=== PATIENT | male | born 1945 | race Caucasian/White ===

== ENCOUNTER 2018-05-09 09:43 | Emergency (ER) | payer MEDICARE, OTHER ==
[2018-05-09 11:08] LABS: ADD MAN DIFF? NO
[2018-05-09 11:22] LABS: WHITE BLOOD COUNT 3.6 10^3/ul (4.8-10.8)
[2018-05-09 11:22] LABS: BASOPHILS % 0.3 % (0.0-2.0); EOSINOPHILS % 1.1 % (0.0-7.0); HEMOGLOBIN 14.1 g/dl (14.0-18.0); LYMPHOCYTES # 1.2 10^3/ul (0.8-2.9); LYMPHOCYTES % 32.4 % (15.0-51.0); MEAN CORPUSCULAR HEMOGLOBIN 27.8 pg (29.0-33.0); MEAN CORPUSCULAR HGB CONC 32.8 g/dl (32.0-37.0); MEAN CORPUSCULAR VOLUME 84.8 fl (82.0-101.0); MEAN PLATELET VOLUME 9.5 fl (7.4-10.4); MONOCYTE # 0.3 10^3/ul (0.3-0.9); MONOCYTES % 7.3 % (0.0-11.0); NEUTROPHIL # 2.1 10^3/ul (1.6-7.5); NEUTROPHILS % 58.3 % (39.0-77.0); PLATELET COUNT 180 10^3/UL (140-415); RED BLOOD COUNT 5.07 10^6/ul (4.70-6.10); RED CELL DISTRIBUTION WIDTH 12.9 % (11.5-14.5)
[2018-05-09 11:24] LABS: ADD UMIC NO; UR ASCORBIC ACID NEGATIVE (NEGATIVE); UR BILIRUBIN (Dip) NEGATIVE (NEGATIVE); UR BLOOD (Dip) NEGATIVE (NEGATIVE); UR CLARITY CLEAR (CLEAR); UR COLOR STRAW (YELLOW); UR GLUCOSE (Dip) 3+ mg/dL (NEGATIVE); UR KETONES (Dip) NEGATIVE (NEGATIVE); UR LEUKOCYTE ESTERASE (Dip) NEGATIVE Leu/ul (NEGATIVE); UR NITRITE (Dip) NEGATIVE (NEGATIVE); UR SPECIFIC GRAVITY (Dip) 1.029 (1.003-1.030); UR TOTAL PROTEIN (Dip) NEGATIVE (NEGATIVE); UR UROBILINOGEN (Dip) NEGATIVE (NEGATIVE)
[2018-05-09] MEDS: MECLIZINE 12.5 MG TAB PO (11:25)
[2018-05-09 11:43] LABS: INR 0.91; PROTIME 12.3 Sec (11.9-14.9)
[2018-05-09 11:44] LABS: PARTIAL THROMBOPLASTIN TIME 30.3 Sec (23.0-35.0)
[2018-05-09 11:52] LABS: ANION GAP 9 (5-13); BLOOD UREA NITROGEN 12 mg/dl (7-20); CALCIUM 9.1 mg/dl (8.4-10.2); CARBON DIOXIDE 29 mmol/L (21-31); CHLORIDE 103 mmol/L (97-110); CHOL/HDL RATIO 3.3 RATIO; CHOLESTEROL 137 mg/dl (100-200); CREATININE 0.69 mg/dl (0.61-1.24); GLUCOSE 350 mg/dl (70-220); HDL CHOLESTEROL 41 mg/dl (31-75); LDL CHOLESTEROL,CALCULATED 67 mg/dl; POTASSIUM 4.1 mmol/L (3.5-5.1); SODIUM 141 mmol/L (135-144); TRIGLYCERIDES 146 mg/dl (0-149)
[2018-05-09 11:54] LABS: AMPHETAMINE/METHAMPHETAMINE Negative (NEGATIVE); BARBITURATES Negative (NEGATIVE); BENZODIAZEPINES Negative (NEGATIVE); CANNABINOIDS Negative (NEGATIVE); COCAINE Negative (NEGATIVE); OPIATES Negative (NEGATIVE)
[2018-05-09 11:57] LABS: HEMOGLOBIN A1C 9.9 % (0-5.9)
[2018-05-09 12:01] LABS: TROPONIN-I < 0.012 ng/ml (0.000-0.120)
[2018-05-09] MEDS ORDERED: INSULIN LISPRO 100 UNIT/ML VIAL SC (13:00)
== END 2018-05-09 13:30 | disposition home or self-care (01) ==
LOC: E/R 09:43
DX: R42 Dizziness and giddiness (principal); I25.10 Atherosclerotic heart disease of native coronary artery without angina pectoris; I10 Essential (primary) hypertension; E11.9 Type 2 diabetes mellitus without complications; R06.02 Shortness of breath; Z79.82 Long term (current) use of aspirin; Z79.84 Long term (current) use of oral hypoglycemic drugs; Z87.891 Personal history of nicotine dependence
CPT/HCPCS: 36415; 70450; 71045; 80048; 80061; 80307; 81003; 82962; 83036; 84484; 85025; 85610; 85730; 93005; 99285-25